=== PATIENT | male | born 1945 | race Caucasian/White ===

== ENCOUNTER 2018-01-02 06:01 | Observation (INO) ==
[2018-01-02] MEDS ORDERED: Sod Chloride 0.9% Inj 1,000 ML IV.CONT SCH (07:00)
[2018-01-02] MEDS ORDERED: Chlorhexidine Gluconate 2% 1 Pack (2 Cloths) TOPICAL SCH ×2 (07:00)
[2018-01-02] MEDS ORDERED: Metoprolol Tartrate 25 MG Tablet PO SCH (07:00)
[2018-01-02] MEDS ORDERED: Sodium Chlor 0.9% Inj 500 ML IV.SIG SCH (07:00)
[2018-01-02] MEDS ORDERED: Mupirocin 2% Nasal Oint Topical Syringe EACH NARE SCH (07:00)
[2018-01-02] MEDS ORDERED: Vancomycin Inj 1,000 MG in Sodium Chlor 0.9% Inj 250 ML IV.SIG SCH (07:00)
[2018-01-02 07:16] LABS: Activated Partial Thrombo Time 27.8 sec (24.3-30.1); Baso % (Auto) 0.7 % (0.0-2.0); Eos # (Auto) 0.3 th/mm3 (0.0-0.4); Eos % (Auto) 4.6 % (0.0-4.0); Hematocrit 36.7 % (39.0-51.0); Hemoglobin 12.6 gm/dL (13.0-17.0); INR 1.1 Ratio; Lymph # (Auto) 1.4 th/mm3 (1.0-4.8); Lymph % (Auto) 23.9 % (9.0-44.0); Mean Corpuscular HGB Conc 34.5 % (32.0-36.0); Mean Corpuscular Volume 89.9 fL (80.0-100.0); Mono # (Auto) 0.6 th/mm3 (0.0-0.9); Mono % (Auto) 10.9 % (0.0-8.0); Neut # (Auto) 3.5 th/mm3 (1.8-7.7); Neut % (Auto) 59.9 % (16.0-70.0); Platelet Count 232 th/mm3 (150-450); Prothrombin Time 10.7 sec (9.8-11.6); Red Blood Count 4.08 mil/mm3 (4.50-5.90); Red Cell Distribution Width 14.4 % (11.6-17.2); White Blood Count 5.9 th/mm3 (4.0-11.0)
[2018-01-02 07:18] LABS: Calcium 8.9 mg/dL (8.5-10.1); Carbon Dioxide 28.6 meq/L (21.0-32.0); Potassium 4.6 meq/L (3.5-5.1)
[2018-01-02] MEDS ORDERED: Sodium Chlor 0.9% Inj 250 ML ONE (07:29)
[2018-01-02] MEDS ORDERED: Levofloxacin 500 mg Premix Inj 500 MG/100 ML PIGGYBACK IV.SIG ONE (07:29)
[2018-01-02] MEDS ORDERED: Heparin/NS PF Inj 500 ML ONE (07:40)
--- NOTE | 2018-01-02 09:15 | CATHPROC ---
Patient Name: Ronn Tang Study #: [id number] Initial MD: Chester Nixon Date of : 1945 Study Date: 01/02/2018 Cardiac Catheterization Report 01/02/2018 9:15:14 AM Financial #: [id number] 1 of 9 Patient Name: Ronn Tang Study #: [id number] Initial MD: Chester Nixon Date of : 1945 Study Date: 01/02/2018 Entire Case Report Patient Information Patient Name Ronn Tang Date of 1945 Age 72 years Financial # [id number] Gender M AlternateID Lab Number 2 Room Number DC09 Height (in) 70.0 Height (cm) 177.8 BSA 2.02 Weight (lbs) 183.9 Weight (kg) 83.6 Patient Address/Phone Number Home Address [facility] Home Phone Number [phone] [facility] [id number] Study Information Study Number Admission Scheduled Start Study Start [id number] Jan 02 2018 6:01AM 01/02/2018 Jan 02 2018 7:32AM [facility] Service STR Admit Source Facility Department Other [facility] - Performance Analyst Physician and Clinical Staff Initial Chester Haile Dietetic Aide Eric Amaya,RT(R) Other Anesthesia, SECRET SERVICE AGENT Recorder Mini Hdz,VAMSHI Scrub Susy Vasquez,RT(R) TECH2 Procedures Performed Procedure Location (Site) Vessel Name Lead Insertion Wire insertion Subclav. Vein (Lft Subclavian Vein 01/02/2018 9:15:14 AM Financial #: [id number] 2 of 9 Patient Name: Ronn Tang Study #: [id number] Initial MD: Chester Nixon Date of : 1945 Study Date: 01/02/2018 Equipment Time Community Relations Advisor Description Size Mfg Part Number Used/Scraped [id number] 08:23 [employer] WIRE, ASAHI PROWATER 180CM 180CM Used *[id number] 95904-68 08:31 [employer] WIRE, ASAHI PROWATER 180CM 180CM Used *[id number] DERMABOND, ADHESIVE SKIN [id number] 07:46 CORDIS/PACER * Used GLUE MINI *[id number] WIRE, HYDROSTEER 150CM [id number] 08:02 DAIG/[employer] [facility] 150CM Used ANGLED GLIDE *[id number] WIRE, HYDROSTEER 150CM 123657 08:02 DAIG/[employer] 150CM Used ANGLED GLIDE *[id number] 07:45 [employer] PHONTOBLADE, 7.5" RETRACTED [id number] Used [id number] 07:46 [employer]uity[employer] BLANKET,WARM AIR CCL * Used *[id number] TP-1103 07:46 [employer] SUTURE, STRIP PLUS 1/2" * Used *[id number] 07:46 Nativo PACER IBRAHIM, LIMB * 2530 *[id number] Used [id number] 07:46 Nativo PACER PACK, PACER CUSTOM * Used *[id number] 07:45 [employer] It Interactive PACER SAFE SHEATH, FR9, 13CM FR 9 [id number] Used 07:45 [employer] PACER SAFE SHEATH, FR9, 13CM FR 9 [id number] Used 07:51 Needle Sponge Count 1 111 Used 07:51 Needle Sponge Count 20 200 Used 07:51 Needle Sponge Count 3 3 Used 07:59 NYCOMED OMNIPAQUE, 350 MG, 50ML 50ML [id number] Used 08:34 NYCOMED OMNIPAQUE, 350 MG, 50ML 50ML [id number] Used SUTURE, 0 ETHIBOND [CT1] (CX21D), 8pk SUTURE, 2-0 VICRYL [CT1] ([id number]) SUTURE, 2-0 VICRYL [CT1] (NEY486A) 278525 08:19 [facility] LIVEWIRE, QUAD, MED SWEEP FR 6 Used *[id number] 385254 08:00 [facility] [facility] SHEATH, EPS, FR5 FAST CATH FR 5 Used *[id number] [facility] PAD, ELECTROSURGICAL 07:46 * [id number] *[id number] Used SURGICAL GROUNDING ORANGE LEAD, ATTAIN PERFORMA 08:26 VITATRON MEDTRON[employer] 88CM 4398-88CM Used STRAIGHT, 88CM LEAD, SPRINT QUATTRO SECURE 6935M-[id number] 08:03 VIT[employer] 62CM Used S 62CM *[id number] 07:44 [employer] MONITOR, PACEMAKER\\ICD 81191 *[id number] Used PACEMAKER, CLARIA MRI TRANSMISSION SUPERVISOR-D 08:41 [employer] FYVY5H1 Used SURESCAN [id number] 07:46 [employer] CASIMIRO. / * Used *[id number] 01/02/2018 9:15:14 AM Financial #: [id number] 3 of 9 Patient Name: Ronn Tang Study #: [id number] Initial MD: Chester Nixon Date of : 1945 Study Date: 01/02/2018 Equipment Model, Serial, Lot Number and Expiration Data Description Model Number Serial Number Lot Number Expiration Date LEAD, ATTAIN PERFORMA 4398-88CM [id number] 10-25-2019 STRAIGHT, 88CM LEAD, SPRINT QUATTRO SECURE S 6935M-62CM [id number] 10-26-2019 62CM PACEMAKER, CLARIA MRI TRANSMISSION SUPERVISOR-D [id number] 05-01-2019 SUREComeetAN Insurance Information Insurance Payor Medicare, Private Health Insurance Third Democrat Third Democrat Number MEDICARE A B MCRAB History: Risk Factors Family History of Hypertension Dyslipidemia Previous [place] Previous Heart Failure Premature CAD Yes Yes No No Yes Prior Valve Prior PCI Prior CABG Surgery No No No Cerebrovascular Peripheral Artery Chronic Lung On Dialysis Diabetes Diabetes Therapy Disease Disease Disease No No No Yes Yes Oral Labs Hgb (g/dl) Hct (%) WBC (l/cumm) Platelets (thousands) 11.60-17.00 35.00-51.00 4.00-11.00 150.00-450.00 12.6 36.7 5.9 232 Glucose (mg/dl) BUN (mg/dl) Creatinine (mg/dl) BUN:Creatinine (1:x) 74.00-106.00 7.00-18.00 0.50-1.30 10.00-20.00 115 15 1.0 15 Na (meq/l) K (meq/l) 136.00-145.00 3.50-5.10 141 4.6 INR (PTT:PT) 0.90-1.10 1.1 CPK-MB (ng/ML) 0.50-3.60 Not Drawn 01/02/2018 9:15:14 AM Financial #: [id number] 4 of 9 Patient Name: Ronn Tang Study #: [id number] Initial MD: Chester Nixon Date of : 1945 Study Date: 01/02/2018 Medication Medication Total Dose (Bolus/Oral) Medication Total Dosage/Unit 2% XYLOCAINE 50 mL Medications (Bolus/Oral) Medication Time Given Dosage/Unit Administered By Reason 2% XYLOCAINE 01/02/2018 7:54:17 AM 50 mL Anesthesia, SECRET SERVICE AGENT 50 mL 2% XYLOCAINE given in lab by Anesthesia, SECRET SERVICE AGENT in Left shoulder via Subcutaneous. Ordered by Chester Matias. LEFT UPPER CHEST Medication (Drip) Medication Time Given Dosage/Unit Concentration/Unit Diluent (ml) Solution LEVAQUIN 01/02/2018 7:43:00 AM 500 mL/hr 500 100 NaCl .9 500 mL/hr LEVAQUIN given in lab by Anesthesia, SECRET SERVICE AGENT via Peripheral IV. Pump/Drip Flow = 0 ml/hr using NaCl .9 with a concentration of 500 in 100 ml. Ordered by Chester Nixon. VANCOMYCIN DRIP 01/02/2018 7:40:00 AM 1 g 1 g VANCOMYCIN DRIP given in lab by Anesthesia, SECRET SERVICE AGENT via Peripheral IV. Ordered by Chester Nixon. Initial Case Assessment Cardiovascular HR Rhythm NIBP 80 PACED 127/73 Edema Present Skin color Skin None Normal Warm Dry Circulatory - Right Pulses Dorsalis Pedis 1 Scale (0,1,2,3,4,d) Circulatory - Left Pulses Dorsalis Pedis 1 Scale (0,1,2,3,4,d) Neurological State Oriented to time-place- Alert Moves all extremities person Respiration - General Respiration Rate SpO2 (%) (B/min) 18 98 01/02/2018 9:15:14 AM Financial #: [id number] 5 of 9 Patient Name: Ronn Tang Study #: [id number] Initial MD: Chester Nixon Date of : 1945 Study Date: 01/02/2018 Final Case Assessment Cardiovascular HR Rhythm NIBP Chest Pain 60 PACED 115/52 0 Edema Present Skin color Skin None Normal Warm Dry Circulatory - Right Pulses Dorsalis Pedis 1 Scale (0,1,2,3,4,d) Circulatory - Left Pulses Dorsalis Pedis 1 Scale (0,1,2,3,4,d) Neurological State Oriented to time-place- Alert Moves all extremities person Respiration - General Respiration Rate SpO2 (%) (B/min) 18 99 Chronological Log Time Study Chronological Log 7:20:00 Patient arrived via Bed. 7:20:10 Patient Name, D.O.B, / Armband Verified By R.N. 7:25:10 Anesthesia at bedside. Assumes care of patient. SEE 7:39:00 DR MILLER AT BEDSIDE WITH ANTHONY PLASENCIA FOR SEDATION 7:40:00 1 g VANCOMYCIN DRIP given in lab by Anesthesia, SECRET SERVICE AGENT via Peripheral IV. Ordered by Scott Nixon. 7:42:40 Reference ECG taken 500 mL/hr LEVAQUIN given in lab by Anesthesia, SECRET SERVICE AGENT via Peripheral IV. Pump/Drip Flow = 0 ml/hr using NaCl .9 with 7:43:00 a concentration of 500 in 100 ml. Ordered by Chester Nixon. 7:45:00 Verbal Stimulation=2 Physical Stimulation=2 Airway=2 Respiration=2 TOTAL=8. (0=absent, 1=li mited, 2=present) 7:45:49 Patient has been NPO for More than 6Hrs. 7:45:50 Skin Breakdown- NON PER PATIENT 7:46:47 Patient Warmer Placed on the Table. 7:46:50 Disposable Defibrillator Pads Placed On Patient. 01/02/2018 9:15:14 AM Financial #: [id number] 6 of 9 Patient Name: Ronn Tang Study #: [id number] Initial MD: Chester Nixon Date of : 1945 Study Date: 01/02/2018 7:46:51 Db Prominences Protected 7:48:39 History and physical on the chart or being dictated. Assessment: Initial Case, HR=80 BPM, Rhythm=PACED, RJDX=584/73 mmhg, Edema=None, Color=Normal, Skin = Warm, Dry Right Pulses: Jhoan Ped=1 7:48:40 Left Pulses: Jhoan Ped=1 Neurological: State=Alert, Ox3, LAMBERT Respiration: Resp=18 B/min, SpO2=98 % 7:49:25 Table restraints applied according to hospital policy 7:49:30 Left Upper Chest Prepped Times Two. 7:49:32 A # 20 IV was noted in the Antecubital (left). Grade = 0 7:50:09 A # 20 IV was noted in the Antecubital (right). Grade = 0 7:50:39 Bovie ground pad applied to: RIGHT THIGH 7:50:48 2% CHLORHEXIDINE GLUCONATE WASH AND NASAL SWIPE DONE PRIOR TO PROCEDURE. First Sponge And Instrument Count Done by Susy Vasquez, RT(R) TECH2. 7:50:51 Hypo's: 3, Sponges: 20, Bovie/scratch: 1 Sutures: 10, Blades: 1, Instruments: 26, Syveck Patches: 0 VERIFIED BY ERIC Alas Time Out. Correct patient, procedure, procedure equipment, site and side verified with physicia n present. Time 7:53:40 concurred by MD, individual staff and SECRET SERVICE AGENT. Time Out #2 - Consents verified, patient in correct position, all results are labled and displa yed, safety precautions 7:53:42 taken, antibiotics administered. Time out concurred by MD, individual staff and SECRET SERVICE AGENT in procedu re 7:53:43 Case Start 50 mL 2% XYLOCAINE given in lab by Anesthesia, SECRET SERVICE AGENT in Left shoulder via Subcutaneous. Ordered by Chester Nixon. 7:54:17 LEFT UPPER CHEST 8:01:00 Surgical Incision Made. 8:01:05 A device was explanted. 8:09:19 Vascular access was obtained in the Subclav. Vein (Lft. 8:09:28 A SAFE SHEATH, FR9, 13CM FR 9 was advanced into the Subclav. Vein (Lft using the Modified S eldinger technique. 8:09:44 A WIRE, HYDROSTEER 150CM ANGLED GLIDE 150CM was inserted via Subclav. Vein (Lft. 8:13:48 A LEAD, SPRINT QUATTRO SECURE S 62CM 62CM was inserted and positioned in the RV. 8:14:02 Lead placement verified under fluoroscopy 8:14:27 The RV lead impedance and threshold being tested. 8:15:50 A SAFE SHEATH, FR9, 13CM FR 9 was advanced into the Subclav. Vein (Lft using the Modified S eldinger technique. A LIVEWIRE, QUAD, MED SWEEP FR 6 was advanced vis Subclav. Vein (Lft and placed in the CS. Plac ement was 8:21:53 visually confirmed under fluoroscopy. 8:24:27 A WIRE, ASAHI PROWATER 180CM 180CM was inserted via Subclav. Vein (Lft. 8:27:05 A LEAD, ATTAIN PERFORMA STRAIGHT, 88CM 88CM was inserted and positioned in the CS/LV. 8:29:48 Lead placement verified under fluoroscopy 8:31:31 A WIRE, ASAHI PROWATER 180CM 180CM was inserted via Subclav. Vein (Lft. 8:36:35 The CS/LV lead impedance and threshold is being tested. 8:42:49 The CS/LV lead was sutured to the fascia. 8:43:17 The OLD RV lead was capped. 01/02/2018 9:15:14 AM Financial #: [id number] Patient Name: Ronn Tang Study #: [id number] Initial MD: Chester Nixon Date of : 1945 Study Date: 01/02/2018 8:44:05 Pocket flushed with antibiotic solution 8:44:49 Implant Procedure was performed. 8:44:54 A Bivent ICD Implant . (Dual) PM UPGRADE BIV NO ATRIAL LEAD, CAPPED OLD PACER RV LEAD 8:45:39 A PACEMAKER, CLARIA MRI TRANSMISSION SUPERVISOR-D SURESCAN was connected and placed in the pocket. SECOND Sponge And Instrument Count Done by Susy Vasquez, RT(R) TECH2. 8:45:59 Hypo's: 3, Sponges: 20, Bovie/scratch: 1 Sutures: 10, Blades: 1, Instruments: 26, Syveck Patches: 0 VERIFIED BY ERIC Alas 8:46:00 (Physician broke scrub) 8:46:29 SUSY Chavez ASSIST WITH POCKET CLOSURE 9:00:35 Case End POCKET CLOSED FINAL Sponge And Instrument Count Done by Susy Vasquez RT(R) TECH2. 9:01:12 Hypo's: 3, Sponges: 20, Bovie/scratch: 1 Sutures: 10, Blades: 1, Instruments: 26, Syveck Patches: 0 VERIFIED BY ERIC Alas 9:02:08 Steri-strips and a sterile dressing applied to site. Assessment: Final Case, HR=60 BPM, Rhythm=PACED, LRDZ=452/52 mmhg, Chest Pain=0, Edema=None, Color=Normal, Skin = Warm, Dry Right Pulses: Jhoan Ped=1 9:02:12 Left Pulses: Jhoan Ped=1 Neurological: State=Alert, Ox3, LAMBERT Respiration: Resp=18 B/min, SpO2=99 % 9:03:49 A sling was placed on the affected arm. 9:04:02 No case complications noted. 9:04:03 Cine recording checked. 9:04:04 Bedside Report will be given. 9:04:05 Implantable Device card placed in patient's chart. 9:04:06 PACU called. Spoke to SUSY 9:04:14 Defibrillator and ground pads removed. Skin intact. 9:04:15 Verbal Stimulation=2 Physical Stimulation=2 Airway=2 Respiration=2 TOTAL=8. (0=absent, 1=li mited, 2=present) 9:14:32 PACU called. Spoke to ANIRUDH End Study - Contrast Media Used In Study Contrast Total Opened (mL) Total Used (mL) Total Wasted (mL) Omnipaque 35 35 0 End Study - Maximum Contrast Load Max Contrast Load (mL) 418.0 01/02/2018 9:15:14 AM Financial #: [id number] Patient Name: Ronn Tang Study #: [id number] Initial MD: Chester Nixon Date of : 1945 Study Date: 01/02/2018 End Study - Radiation Exposure Fluoro Time (minutes) 19.3 End Study - Patient Disposition Complications Transferred To Interventional Outcome No Telemetry Bed successful 01/02/2018 9:15:14 AM Financial #: [id number]
[2018-01-02] MEDS ORDERED: Morphine Inj 4 MG/ML Vial ONE (11:37)
[2018-01-02] MEDS ORDERED: ceFAZolin 2 GM Premix Inj 2 GM/50 ML PIGGYBACK IV.SIG SCH (12:00)
[2018-01-02] MEDS ORDERED: Phenylephrine/NS 1000 MCG/10ML Syringe IV.PUSH ONE (12:00)
--- NOTE | 2018-01-02 12:04 | XR ---
EXAM DATE: 01/02/2018 11:55 AM EDT AGE/SEX: 72 years / Male INDICATIONS: Post op pacemaker/defibrillator CLINICAL DATA: This is the patient's initial encounter. Patient reports that signs and symptoms have been present for 1 day and indicates a pain score of 0/10. MEDICAL/SURGICAL HISTORY: None. None. COMPARISON: No prior exams available for comparison. FINDINGS: Lungs are clear. Pacer/ICD device from a left subclavian transvenous approach, ACDF hardware overlyin g the cervical spine, and spinal stimulator leads overlie the mid thoracic spine. Heart size upper li mits normal. I do not see a pneumothorax. CONCLUSION: Negative examination. Electronically signed by: Rajinder Cuellar MD 01/02/2018 12:02 PM EDT
--- NOTE | 2018-01-02 16:56 | ECG ---
Date Performed: 01/02/2018 Time Performed: 11:21:34 PTAGE: 72 years EKG: ELECTRONIC VENTRICULAR PACEMAKER ABNORMAL RHYTHM ECG Compared to PREVIOUS TRACING , now paced PREVIOUS TRACIN01/02/2018 06.59 DOCTOR: Brigitte Mcgill Interpretating Date/Time 01/02/2018 16:55:11
--- NOTE | 2018-01-02 17:02 | ECG ---
Date Performed: 01/02/2018 Time Performed: 06:59:36 PTAGE: 72 years EKG: Demand pacing. Left axis deviation RBBB with left anterior fascicular block Extensive infar ct - age undetermined Abnormal ECG NO PREVIOUS TRACING DOCTOR: Brigitte Mcgill Interpretating Date/Time 01/02/2018 17:01:56
[2018-01-02] MEDS: Famotidine 20 MG Tablet PO SCH (22:00)
[2018-01-03] MEDS: Ferrous Sulfate 325 MG Tablet PO SCH ×2 (08:22→08:33)
[2018-01-03] MEDS: Famotidine 20 MG Tablet PO SCH (08:22)
--- NOTE | 2018-01-03 08:24 | P.PNCA ---
Subjective Interval history: Feeling better. Physical Exam Vital signs: Vital Signs 01/02/18 09:28 01/02/18 09:30 01/02/18 09:45 Temperature 96.6 F L Pulse Rate 63 65 62 Respiratory Rate 15 15 13 Blood Pressure 125/59 L 119/64 121/66 Pulse Oximetry 100 98 97 01/02/18 10:00 01/02/18 11:00 01/02/18 11:50 Temperature Pulse Rate 60 65 Respiratory Rate 12 16 16 Blood Pressure 116/62 123/73 Pulse Oximetry 97 96 01/02/18 12:00 01/02/18 13:00 01/02/18 14:00 Temperature 98 F Pulse Rate 74 70 64 Respiratory Rate 14 13 17 Blood Pressure 124/71 104/55 L 108/58 L Pulse Oximetry 97 100 98 01/02/18 15:00 01/02/18 15:40 01/02/18 17:00 Temperature 98.1 F Pulse Rate 74 70 64 Respiratory Rate 16 Blood Pressure 126/69 Pulse Oximetry 96 01/02/18 18:00 01/02/18 19:00 01/02/18 20:00 Temperature 98.0 F Pulse Rate 69 78 66 Respiratory Rate 18 Blood Pressure 122/69 Pulse Oximetry 98 01/02/18 21:00 01/02/18 22:00 01/02/18 23:00 Temperature Pulse Rate 62 61 66 Respiratory Rate Blood Pressure Pulse Oximetry 01/03/18 00:00 01/03/18 01:00 01/03/18 02:00 Temperature 98.0 F Pulse Rate 70 76 70 Respiratory Rate 16 Blood Pressure 97/52 L Pulse Oximetry 99 01/03/18 03:00 01/03/18 04:00 01/03/18 05:00 Temperature 98.1 F Pulse Rate 60 71 64 Respiratory Rate 18 Blood Pressure 108/64 Pulse Oximetry 98 01/03/18 06:00 Temperature Pulse Rate 68 Respiratory Rate Blood Pressure Pulse Oximetry Intake & Output 01/02/18 01/03/18 01/03/18 18:59 06:59 18:59 Intake Total 520 / 520 240 / 240 Output Total 350 / 350 980 / 980 Balance 170 / 170 -740 / -740 Weight 179 lb 7.3 oz Intake: Oral 520 / 520 240 / 240 Output: Urine 350 / 350 980 / 980 Narrative: GENERAL: Well-developed, well-nourished male lying in bed in no acute distress. SKIN: Warm and dry. Chest wall incision well approximated without bruising or bleeding. HEAD: Atraumatic. Normocephalic. EYES: Pupils equal and round. No scleral icterus. No injection or drainage. ENT: No nasal bleeding or discharge. Mucous membranes pink and moist. NECK: Trachea midline. No JVD. CARDIOVASCULAR: Regular rate and rhythm. RESPIRATORY: No accessory muscle use. Clear to auscultation. Breath sounds equal bilaterally. GASTROINTESTINAL: Abdomen soft, non-tender, nondistended. Hepatic and splenic margins not palpable. MUSCULOSKELETAL: Extremities without clubbing, cyanosis, or edema. No obvious deformities. NEUROLOGICAL: Awake and alert. No obvious cranial nerve deficits. Motor grossly within normal limits. Five out of 5 muscle strength in the arms and legs. Normal speech. PSYCHIATRIC: Appropriate mood and affect; insight and judgment normal. Assessment and Plan - Assessment (1) Cardiomyopathy Code(s): I42.9 - Cardiomyopathy, unspecified Status: Acute - Plan Stable status post upgrade from ICD to BiVICD. Discharge home. Follow-up with Dr. Nixon in 3 weeks per my discussion with him
[2018-01-03] MEDS ORDERED: glipiZIDE 5 MG Tablet PO SCH (09:00)
[2018-01-03] MEDS ORDERED: Levofloxacin 500 mg Premix Inj 500 MG/100 ML PIGGYBACK IV.SIG ONE (09:00)
[2018-01-03] MEDS ORDERED: Folic Acid 1 MG Tablet PO SCH (09:00)
--- NOTE | 2018-01-20 12:56 | MP ---
cc: Chester Nixon MD DATE OF OPERATION: 01/02/2018 PROCEDURES: 1. Permanent pacemaker removal. 2. Biventricular pacer-defibrillator insertion. INDICATIONS: Mr. Tang is a 71-year-old gentleman with congestive heart failure, known ischemic cardiomyopathy, ejection fraction around 25%. Last echo was in 10/2017. Defibrillator is due to episode of ventricular tachycardia. He was referred for upgrade of permanent pacemaker to a biventricular pacer-defibrillator for sudden prevention and therapy. The risks, the nature, and the benefits of the procedure were clearly said to him. Risks include pneumothorax, cardiac perforation, stroke, need for open heart surgery, and even . The patient understood and agreed to proceed. DESCRIPTION OF PROCEDURE: After adequate informed consent was obtained, the patient was brought to the EP lab where he was prepped and draped in the usual sterile fashion. Conscious sedation was initiated and maintained throughout the procedure by the anesthesiologist. Once sedation was verified, the left infraclavicular area over the existing generator was anesthetized with 2% Xylocaine. Using a #11 blade scalpel, a 3 cm incision was made over the existing generator. Incision was taken down to fascial layer using Bovie cautery and blunt dissection. Into the inferior medial direction, the device was exposed. Generator was removed from the pocket. Scar tissue was moving on the lead. Pocket was expanded. Pocket revision was performed. Then using modified Seldinger technique, the left subclavian vein was cannulated on 2 occasions. Two guidewires were advanced. A 2-0 Vicryl suture was placed around the wire to prevent backbleeding. At this point over the lateral wire, a 9-Haitian dilator and introducer were advanced. The dilator and wire were removed, and active-fixation right ventricular pacing-sensing defibrillator lead was advanced. After adequate pacing and sensing thresholds were obtained, the lead was secured to the pocket using #2 Ethibond suture. Then over the remaining wire, a 9-Haitian dilator and introducer were advanced. The dilator and wire were removed. A CS cannulation sheath was advanced. Through the sheath, a quadripolar steerable catheter was advanced. After multiple attempts, the coronary sinus was cannulated. CS venography showed an adequate lateral branch. Using a Prowater wire, the lateral branch was cannulated, and the lead was advanced over the wire. After adequate pacing and sensing thresholds were obtained, the peel-away introducer was removed, and the cutter introducer was removed, and the lead was secured in the pocket using #2 Ethibond suture. At that point, the pocket was copiously irrigated with antibiotic solution. The leads were connected the generator and placed into the pocket. Previous to that, the permanent pacemaker generator was removed. At that point, I did proceed with wound closure. The deep fascial layer was approximated with #2-0 Vicryl suture in a continuous fashion. The subcutaneous layers were approximated using #2-0 Vicryl suture in a continuous fashion. The subcuticular layer was approximated using #2-0 Vicryl suture in continuous fashion. Dermabond adhesive was applied to the wound followed by a sterile pressure dressing. There was no complication. The patient tolerated the procedure. Blood loss minimal. 1. Explanted hardware: The explanted permanent pacemaker is a Medtronic model number A2DR01, serial number [id number] that was placed in 2014. 2. Implanted hardware: The implanted biventricular pacer-defibrillator is a Medtronic model number DTM1Q, serial number [id number]. The right ventricular pacing sensing defibrillating lead is a Medtronic model #6935M-62, serial number [id number]. The left ventricular pacing-sensing lead is a Medtronic model number 4398-88, serial number [id number]. 2. Thresholds: The right atrial pacing threshold in bipolar mode was 1.1 volt at 0.5 milliseconds, lead impedance 846 ohms, and P-wave at 4.3 millivolt. The right ventricular pacing threshold in bipolar mode was 1.4 volt at 0.4 millisecond, lead impedance 1161. R-wave at 13.5 millivolts. The left ventricular pacing threshold in bipolar mode was 1.5 volt at 0.4 millisecond. Lead impedance 890 ohms. 3. Setting. The device in a DDD 60, upper rate limit 130 beats per minute, LV first by 40 milliseconds. Defibrillator portion for 2 zones, 1 zone for ventricular tachycardia between 160-240 beats per minute. Initial therapy consists of 1 dose of ATP, 1 ramp, 81%, 10 pause, second decremental followed by 20 and then 25 35 defibrillatory shock. Second zone for ventricular fibrillation above 240 beats per minute, first therapy at 25 and all 35 defibrillatory shock. CONCLUSION: Successful permanent pacemaker removal, successful biventricular pacer-defibrillator insertion. RECOMMENDATION: The patient is going to be transferred to the telemetry unit. He will be observed. When stable, can be discharged home. MD ZEINAB Berger/[place]/kd , 10:30 AM , 10:45 AM
== END 2018-01-03 10:54 | disposition home or self-care (01) ==
LOC: HCIS 06:01 → HDOC 06:01 → HDIC 06:01 → HCIS 14:48
PROVIDERS: ADMIT Internal Medicine Interventional Cardiology; ATTEND Internal Medicine Interventional Cardiology